=== PATIENT | female | born 1940 | race Caucasian/White ===

== ENCOUNTER → 2019-12-08 | Outpatient (CLI) | payer MEDICARE ==
--- NOTE | 2019-12-08 11:54 | Diagnostic Imaging Report ---
EXAM: SP LUMBAR, COMPLETE MIN 4VW DATE: 12/08/2019 11:21 AM INDICATION: Lower back pain COMPARISON: None FINDINGS: There are 5 nonrib-bearing lumbar-type vertebral bodies. There is no evidence for acute fracture or dislocation. Vertebral body heights are maintained. No focal lytic or blastic abnormality is identified. There are advanced degenerative changes within the lumbar spine, most prominent within the lower lumbar spine between L3 and S1 where there is intervertebral disc space narrowing, uncovertebral spurring, and facet arthropathy likely contributing to neural foraminal narrowing. Prominent atherosclerotic calcifications noted within the abdominal aorta. Calcifications noted within the pelvis suggestive of uterine fibroids. IMPRESSION: No acute radiographic abnormality identified within the lumbar spine. Multilevel degenerative changes as above. Signed by: Dr. Sebastián Mahoney MD on 12/08/2019 11:51 AM
--- NOTE | 2019-12-08 11:55 | Diagnostic Imaging Report ---
EXAM: HIP LEFT 2-3 VW (+/- PELVIS) DATE: 12/08/2019 11:21 AM INDICATION: Hip pain COMPARISON: None FINDINGS: There is no evidence for acute fracture or dislocation. No focal lytic or blastic abnormality is identified. There is advanced joint space narrowing with near [id number] appearance. There is associated subchondral sclerosis, cystic change, and osteophyte production. Partially visualized degenerative changes also noted at the pubic symphysis. The surrounding soft tissues are unremarkable. IMPRESSION: No acute radiographic abnormality identified within the left hip. Advanced degenerative changes as above. Signed by: Dr. Sebastián Mahoney MD on 12/08/2019 11:53 AM
== END ==
LOC: RAD 11:12
DX: M25.552 Pain in left hip (principal); M54.5 Low back pain
CPT/HCPCS: 72110